=== PATIENT | female | born 1995 | race Caucasian/White ===

== ENCOUNTER 2017-07-14 17:26 | Emergency (ER) | payer OTHER ==
[2017-07-14 18:04] LABS: BILIRUBIN,URINE NEGATIVE (NEGATIVE)
[2017-07-14 18:06] LABS: UA CHARGE (STRIP ONLY) YES; UR CULTURE IF IND NOT INDICATED
[2017-07-14 18:46] LABS: BASOPHILS # (AUTO) 0.1 10^3/uL (0.0-0.1); BASOPHILS % (AUTO) 0.7 %; EOSINOPHILS % (AUTO) 0.2 %; HCT - HEMATOCRIT 36.2 % (37.0-47.0); HGB - HEMOGLOBIN 12.3 g/dL (12.0-16.0); LYMPHOCYTES # (AUTO) 2.2 10^3/uL (1.5-3.5); LYMPHOCYTES % (AUTO) 12.1 %; MEAN CORPUSCULAR HEMOGLOBIN 30.8 pg (27.0-31.0); MEAN CORPUSCULAR VOLUME 90.7 fL (81.0-99.0); MEAN PLATELET VOLUME 8.6 fL (7.9-10.8); MONOCYTES # (AUTO) 0.9 10^3/uL (0.0-1.0); MONOCYTES % (AUTO) 4.6 %; NEUTROPHILS # (AUTO) 15.2 10^3/uL (1.5-6.6); NEUTROPHILS % (AUTO) 82.4 %; RED BLOOD COUNT 3.99 10^6/uL (4.20-5.40); RED CELL DISTRIBUTION WIDTH 13.3 % (12.0-15.0); UNCORRECTED WHITE BLOOD COUNT 18.5 x10^3/uL; WHITE BLOOD COUNT 18.5 x10^3/uL (4.8-10.8)
[2017-07-14] MEDS ORDERED: SODIUM CHLORIDE 0.9% 1,000 ML IV ONE ×2 (18:50→19:54)
[2017-07-14 18:58] LABS: BILIRUBIN,TOTAL 0.4 mg/dL (0.2-1.0); CALCIUM 9.2 mg/dL (8.5-10.3); CREATININE 0.6 mg/dL (0.4-1.0); POTASSIUM 3.4 mmol/L (3.5-5.0); TOTAL PROTEIN 6.7 g/dL (6.7-8.2)
[2017-07-14] MEDS ORDERED: ACETAMINOPHEN 325 MG TABLET PO STA (19:54)
[2017-07-14] MEDS ORDERED: ACETAMINOPHEN 325 MG TABLET PO ONE (20:03)
--- NOTE | 2017-07-14 20:54 | XRAY Preliminary Report ---
Exam: XR Chest 1 View IMPRESSION: Low lung volumes. No acute cardiopulmonary disease seen. [facility] SITE ID: [id number]
--- NOTE | 2017-07-14 20:56 | XRAY Report ---
EXAM: CHEST RADIOGRAPHY EXAM DATE: 07/14/2017 08:23 PM. CLINICAL HISTORY: Dyspnea. 26 weeks . Double shielded. COMPARISON: None. TECHNIQUE: 1 view. FINDINGS: Lungs/Pleura: No focal opacities evident. No pleural effusion. Low lung volumes. Mediastinum: Within exam limitations, cardiomediastinal contour is normal. IMPRESSION: Low lung volumes. No acute cardiopulmonary disease seen. [facility] Referring Provider Line: [phone] SITE ID: [id number]
[2017-07-14 22:30] VITALS: BP 112/62
--- NOTE | 2017-07-16 20:23 | ED Physician Documentation ---
History of Present Illness - Stated complaint Stated Complaint: LIGHTHEADED - Chief complaint Chief Complaint: General - Additonal information Additional information: This chart was done by me on the date of service however cannot be found by medical records and I looked as well and did not find it. This patient is a young woman who is currently . She has a 27 week gestation is followed by [employer] [employer]. She has no problems with this and in general she has no health problems she is here with a complaint of dizziness and lightheadedness more with standing. She also felt short of breath today as well. She felt nauseous at times but never had any vomiting she did not have any overt fever there is no constipation diarrhea lower urinary symptoms abdominal pain or vaginal bleeding. She feels more dizzy and lightheaded when she stands. She believes her fluid intake has been normal. Review of systems: For pertinent positive and negatives in the review of systems please see the history of present illness, otherwise all other systems have been reviewed and are negative. Dragon disclaimer: Parts of this medical record were created using voice recognition technology. Because of the inherent limitations of this system, occasional same sounding word substitutions do occur and persist despite proofreading. Please read the document for context. 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 Other Past Medical History: pos - Past Surgical History Past Surgical History: No - Present Medications Home Medications: Ambulatory Orders Medication Instructions Recorded Confirmed Cephalexin [Keflex] 500 mg PO BID #10 capsule 10/04/16 Phenazopyridine HCl [Pyridium] 200 mg PO TID PRN #6 tablet 10/04/16 - Allergies Allergies/Adverse Reactions: Allergies Allergy/AdvReac Type Severity Reaction Status Date / Time No Known Drug Allergies Allergy Verified 07/14/17 17:39 - Social History Does the pt smoke?: No Smoking Status: Never smoker Does the pt drink ETOH?: No Does the pt have substance abuse?: No - Immunizations Immunizations are current?: Yes PD ED PE NORMAL - Vitals Vital signs reviewed: Yes - General General: Alert and oriented X 3, No acute distress - HEENT HEENT: Atraumatic, PERRL - Neck Neck: Supple, no meningeal sign - Cardiac Cardiac: RRR, No murmur, No gallop, No rub - Respiratory Respiratory: No respiratory distress, Clear bilaterally - Abdomen Abdomen: Normal bowel sounds, Soft, Non tender, Non distended - Female Female : Deferred - Derm Derm: Normal color, Warm and dry - Extremities Extremities: No deformity, No tenderness to palpate, Normal ROM s pain - Neuro Neuro: Alert and oriented X 3, hot shot 2-12 intact, No motor deficit, No sensory deficit, Normal speech Results - Vitals Vitals: Oxygen O2 Source Room air - Labs Labs: Laboratory Tests 07/14/17 07/14/17 07/14/17 17:48 18:35 18:35 WBC 18.5 H RBC 3.99 L Hgb 12.3 Hct 36.2 L MCV 90.7 MCH 30.8 MCHC 34.0 RDW 13.3 Plt Count 226 MPV 8.6 Neut # 15.2 H Lymph # 2.2 [place] # 0.9 Eos # 0.0 Baso # 0.1 Absolute Nucleated RBC 0.01 Nucleated RBCs 0.0 D-Dimer Sodium 137 Potassium 3.4 L Chloride 105 Carbon Dioxide 22 Anion Gap 10.0 BUN 9 Creatinine 0.6 Estimated GFR (MDRD) 126 Glucose 133 H Calcium 9.2 Total Bilirubin 0.4 AST 24 ALT 22 Alkaline Phosphatase 74 Total Protein 6.7 Albumin 3.3 Globulin 3.4 Albumin/Globulin Ratio 1.0 Lipase 25 Urine Color YELLOW Urine Clarity CLEAR Urine pH 6.0 Ur Specific [place] 1.010 Urine Protein NEGATIVE Urine Glucose (UA) NEGATIVE Urine Ketones NEGATIVE Urine Occult Blood NEGATIVE Urine Nitrite NEGATIVE Urine Bilirubin NEGATIVE Urine Urobilinogen 0.2 (NORMAL) Ur Leukocyte Esterase NEGATIVE Ur Microscopic Review NOT INDICATED Urine Culture Comments NOT INDICATED 07/14/17 18:35 WBC RBC Hgb Hct MCV MCH MCHC RDW Plt Count MPV Neut # Lymph # [place] # Eos # Baso # Absolute Nucleated RBC Nucleated RBCs D-Dimer 223.6 Sodium Potassium Chloride Carbon Dioxide Anion Gap BUN Creatinine Estimated GFR (MDRD) Glucose Calcium Total Bilirubin AST ALT Alkaline Phosphatase Total Protein Albumin Globulin Albumin/Globulin Ratio Lipase Urine Color Urine Clarity Urine pH Ur Specific [place] Urine Protein Urine Glucose (UA) Urine Ketones Urine Occult Blood Urine Nitrite Urine Bilirubin Urine Urobilinogen Ur Leukocyte Esterase Ur Microscopic Review Urine Culture Comments PD MEDICAL DECISION MAKING - ED course ED course: Patient is a young healthy 22-year-old with a 27 week gestation who presents with lightheadedness and shortness of breath. On initial physical exam the patient looked well she did look toxic sick or ill. Her vital signs are within normal limits. Thought she felt palpably slightly warm to touch and a little flushed appearance was noted on her cheeks. An EKG was done which is not present in front of me now but I recall it being normal. Given the fact of her there was some concern for pulmonary embolism. I did not see any evidence of venous thromboembolism on clinical examination of the lower extremities. Likely a d-dimer was done and was negative despite the fact that she is . This only probably strengthens the result of the negative d- dimer given the fact it is negative during a third trimester . IV fluids were given and the patient improved symptomatically. She did have a white count of 18,000 however I could not find any obvious infection clinically or by testing. The rest of her laboratory data was unremarkable. Her urine is negative for infection. She continued to do well and I have asked her to watch simply closely for symptoms of worsening shortness of breath cough fever anything that may signify a early pneumonia. I have asked her to follow-up with her physician return should he fail to improve or worsen. Disposition: To home new Clinical impression: 1. Lightheadedness and orthostasis 2. Elevated white blood cell count with out evidence of infection. Departure - Departure Disposition: 01 Home, Self Care Clinical Impression: Weakness Condition: Good Instructions: ED Weakness [facility] Follow-Up: KATERINE ORDONEZ [Primary Care Provider] - Comments: You felt warm tonight and you have a elevated white blood cell count however we do not find any definite infection. I would watch for increasing shortness of breath or cough that may signify early pneumonia despite not having these findings on x-ray. If you get worse or fail to improve please come back for recheck Discharge Date/Time: 07/14/17 22:28
== END 2017-07-14 22:28 | disposition home or self-care (01) ==
LOC: ED 17:26
DX: O26.892 Other specified pregnancy related conditions, second trimester (principal); R53.1 Weakness; Z3A.27 27 weeks gestation of pregnancy
CPT/HCPCS: 36415; 71010; 80053; 81003; 83690; 85025; 85379; 93005; 99283; 99284; A9270; 81001; 87086